=== PATIENT | male | born 2000 | race Caucasian/White ===

== ENCOUNTER 2022-08-12 22:42 | Emergency (ER) | payer OTHER ==
[~2022-08-12] VITALS: Ht 180.3 cm; Wt 83.9 kg
[2022-08-12] MEDS ORDERED: CRUTCHES XX (23:36)
[2022-08-12] MEDS ORDERED: HYDROCODON-ACE1 EA10 PO (23:36)
== END 2022-08-12 23:52 | disposition home or self-care (01) ==
LOC: ED 22:42
DX: M25.562 Pain in left knee (principal)
CPT/HCPCS: 73560; 99283-25; A9270